=== PATIENT | male | born 1955 | race Two or more races ===

== ENCOUNTER 2025-01-07 13:45 | Emergency (ER) | payer MEDICARE ==
[~2025-01-07] VITALS: Ht 177.8 cm; Wt 102.0 kg
[~2025-01-07 13:45] MED LIST: CARV6.2553 PO; DIVA500T2 PO; DOXA8TAB90 PO; FURO20TA4 PO; LACO150T2 PO; LEVE750T6 PO; NOR5T PO
[2025-01-07 13:49] VITALS: TEMP 98.5
--- NOTE | 2025-01-07 14:05 | ELECTROCARDIOGRAPH REPORT ---
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 REGINALD Perez Measurements Intervals [place] Rate: 55 P: -66 MT: 201 QRS: -34 QRSD: 111 T: 47 QT: 449 QTc: 430 Interpretive Statements Sinus or ectopic atrial bradycardia Left axis deviation Probable right ventricular hypertrophy Electronically Signed On 01-07-2025 17:36:[address] REGINALD Perez Please click the below link to view image of tracing.
--- NOTE | 2025-01-07 14:08 | Physician Documentation ---
History of Present Illness General Chief Complaint: Seizure Stated Complaint: SEIZURE Time Seen by MD: 14:02 Mode of Arrival: EMS, Stretcher History of Present Illness Initial Comments The patient is a 69-year-old male with a history of encephalopathy transferred to our facility after he had two witnessed seizures. The patient he is on multiple seizure medications. The patient has a reported 10 minutes seizure followed by a 1 minute seizure. According to EMS he did not regain consciousnes s between the seizures. The patient was found by EMS to be verbally nonresponsive and minimally responsive the pain with a gag reflex with upper respiratory rhonchi. The patient was unable to provide additional history Medication Reconciliation Allergies: Coded Allergies: No Known Allergies (Unverified , 01/07/25) Scheduled Amlodipine Besylate (Amlodipine Besylate), 10 MG PO DAILY Carvedilol (Carvedilol), 1 TAB PO BID, (Reported) Divalproex Sodium (Depakote), 500 MG PO BID@0830,1730 Doxazosin Mesylate (Doxazosin Mesylate), 1 TAB PO DAILY, (Reported) Furosemide (Furosemide), 20 MG PO DAILY Lacosamide (Vimpat), 2 TAB PO Q12H Levetiracetam (Keppra), 2 TAB PO Q12H Discontinued Medications Bumetanide (Bumetanide), 1 TAB PO DAILY, (Reported) Past Medical History Past Medical History: Seizures Review of Systems Unable to obtain complete ROS: altered mental status Physical Exam Physical Exam Vital Signs: Temperature: 98.5, Source: Temporal, Heart Rate: 51, Respiratory Rate: 12, BP: 139/58, Pulse Oximetry: 87, Weight: 102.000 Oxygen Flow Rate: 4.0 Physical Exam VITALS: Reviewed and as above. GENERAL: Responsive to deep sternal rub eyes are closed HEENT: Normocephalic, atraumatic, PERRL, EOMI, dry mucosa, no erythema pupils are 2.5 mm reactive slight horizontal nystagmus RESPIRATORY: Bilateral rhonchi, no respiratory distress. CHEST: No accessory muscle use, no retractions CV: Bradycardic, rhythm, no edema, no murmur, No: JVD GI: Soft, bowels sounds present, no rebound, guarding, or rigidity BACK: No CVA tenderness, or swelling MUSCULOSKELETAL: No deformities, bilateral trace edema SKIN: Warm and dry, no rash NEURO: Responsive to sternal rub gag is intact Progress Results/Orders Results/Orders Orders - OHLSHERRY SHEFFIELD MD Electrocardiogram (01/07/25 14:02) Culture Blood (01/07/25 14:02) Chest,Single View (01/07/25 14:19) Straight Cath For Urine Sample (01/07/25 14:02) Completed Orders - SHERRY PETERSON MD Electrocardiogram (01/07/25 14:02) Cbc/Diff (01/07/25 14:02) MG (01/07/25 14:02) Chest,Single View (01/07/25 14:19) Procalcitonin (01/07/25 14:02) BMP (01/07/25 14:02) Hs Troponin I W Calculations (01/07/25 14:02) Lacticsepsis (01/07/25 14:02) Normal Saline 1000ml (0.9% Sodium Chlori (01/07/25 14:10) Levetiracetamnacl 1500mg/100ml (Levetira (01/07/25 14:10) Ua W/Microscopic, Cult If Ind (01/07/25 14:51) Vital Signs 01/07/25 01/07/25 01/07/25 01/07/25 13:49 13:53 14:01 15:30 Temp 98.5 Pulse 53 51 47 Resp 12 12 12 B/P (MAP) 138/75 139/58 (85) 110/58 (75) Pulse Ox 96 87 96 O2 Flow Rate 4.0 4.0 4.0 01/07/25 17:38 Pulse 49 Resp 14 B/P (MAP) 129/71 Pulse Ox 97 Laboratory Tests Test 01/07/25 14:02 01/07/25 14:51 01/07/25 18:25 White Blood Count 8.0 Red Blood Count 2.97 L Hemoglobin 9.3 L Hematocrit 26.3 L Mean Corpuscular Volume 88.8 Mean Corpuscular Hemoglobin 31.3 H Mean Corpuscular Hemoglobin Concent 35.3 Red Cell Distribution Width 15.3 H Platelet Count 188 Mean Platelet Volume 7.1 L Neutrophils (%) (Auto) 78.4 H Lymphocytes (%) (Auto) 13.1 L Monocytes (%) (Auto) 5.6 Eosinophils (%) (Auto) 1.9 Basophils (%) (Auto) 1.0 Neutrophils # (Auto) 6.3 Lymphocytes # (Auto) 1.0 L Monocytes # (Auto) 0.5 Eosinophils # (Auto) 0.1 Basophils # (Auto) 0.1 CBC Comment Sodium Level 145 Potassium Level 3.5 Chloride Level 108 H Carbon Dioxide Level 28.7 Anion Gap 8 Blood Urea Nitrogen 23 H Creatinine 1.43 H Estimated GFR/1.73 m2 49 BUN/Creatinine Ratio 16.1 Glucose Level 121 H Lactic Acid Level 1.0 Calcium Level 9.0 Magnesium Level 2.0 Troponin I High Sensitivity 15 Albumin 3.2 L Procalcitonin < 0.05 Chemistry Comments Urine Specimen Description Straight cath Urine Color Yellow Urine Clarity Clear Urine pH 6.0 Urine Specific [place] 1.015 Urine Protein Trace Urine Glucose (UA) Negative Urine Ketones Negative Urine Occult Blood Trace-intact Urine Nitrite Negative Urine Bilirubin Negative Urine Urobilinogen 0.2 Urine Leukocyte Esterase Negative Urine RBC 0-2 Urine WBC 0-4 Urine Squamous Epithelial Cells None seen Urine Bacteria Few Urine Mucus None seen Urine Culture Indicated Not ind Volume Urine Centrifuged 10 ml Urine Comment Glucometer 106 H Microbiology Date/Time Source Procedure Growth Status 01/07/25 14:02 Blood Arm Right Blood Culture - Preliminary NO GROWTH AFTER 1 DAY Resulted Medical Decision Making Additional information obtaine: old records Findings The patient is a 69-year-old male with a history of seizures who is on seizure medications and has a seizure it [facility] [facility], the patient was postictal on arrival in the emergency department the patient has been treated with Keppra he is on Keppra as well as two other antiepileptic meds he did regained consciousness he appears to be at his neurologic baseline his labs were unremarkable there was no evidence of an infectious nidus he is in no respiratory distress. His previous hospitalizations has been reviewed the patient's pulse oximetry was interpreted as normal and adequate, the patient's rn cardiac cath was interpreted as a sinus rhythm the patient will be discharged back to [place] [facility] Differential Diagnosis Seizure, infectious etiologies, encephalitis, Departure Disposition: 03 DETENTION FACILITY Impression: Primary Impression: Epilepsy Qualified Codes: G40.309 - Generalized idiopathic epilepsy and epileptic syndromes, not intractable, without status epilepticus Discharge Instructions: Seizure, Adult Referrals: NO PRIMARY CARE PROVIDER (PCP) Signature Scribe Signature: no scribe Attestation: The note accurately reflects work and decisions made by me.Sherry Peterson MD 01/08/25 16:11 SHERRY PETERSON MD Jan 07, 2025 14:08
[2025-01-07 14:13] LABS: MEAN PLATELET VOLUME 7.1 FL (7.4-10.4)
--- NOTE | 2025-01-07 14:29 | RADIOLOGY REPORT ---
CLINICAL HISTORY: SEPSIS TECHNIQUE: Single view of the chest was obtained. COMPARISON: None FINDINGS: The heart size is mildly enlarged. There are patchy bilateral lung opacities. IMPRESSION: Patchy bilateral lung opacities with differential including infection and/or pulmonary edema
[2025-01-07 14:34] LABS: CREATININE 1.43 MG/DL (0.60-1.10); TOTAL CARBON DIOXIDE 28.7 MMOL/L (24-32); eCRCL 49 ML/MIN; eGFR 49 ML/MIN
[2025-01-07] MEDS: levetiracetamNACL 1500mg/100mL 100 ML IV ONE (14:48)
[2025-01-07] MEDS: normal saline 1000ML IV soln IVB ONE (14:49)
[2025-01-07 15:07] LABS: RED CELL DISTRIBUTION WIDTH 15.3 % (11.5-14.5)
[2025-01-07 15:12] LABS: LEUKOCYTE ESTERASE ,URINE NEGATIVE (Neg); NITRITES, URINE NEGATIVE (Neg); OCCULT BLOOD,URINE TRACE-INTACT (Neg)
[2025-01-07 15:21] LABS: UA COLLECTION TYPE STRAIGHT CATH
[2025-01-07 15:23] LABS: MUCUS STRANDS NONE SEEN /LPF (Neg); SQUAMOUS EPITHELIAL CELL,UR NONE SEEN /LPF (FEW)
[2025-01-07 17:38] VITALS: BP 129/71; PULSE 49; RESP 14; O2SAT 97
== END 2025-01-07 18:45 ==
LOC: ER 13:46
DX: G40.909 Epilepsy, unspecified, not intractable, without status epilepticus (principal); R41.82 Altered mental status, unspecified; Z79.899 Other long term (current) drug therapy
CPT/HCPCS: 36415; 71045; 80048; 81001; 82948; 83605; 83735; 84145; 84484; 85025; 87040; 93005; 96365; 99285; C1758; J1953; J7030

== ENCOUNTER 2025-01-29 10:17 | Emergency (ER) | payer MEDICARE ==
[~2025-01-29] VITALS: Ht 177.8 cm; Wt 111.0 kg
--- NOTE | 2025-01-29 10:27 | Physician Documentation ---
History of Present Illness General Chief Complaint: Mental Health Eval Stated Complaint: SI Time Seen by MD: 10:25 History of Present Illness Initial Comments 70 year old male with history of diabetes and epilepsy presents to the emergency room via EMS from [facility] for complaints of a mental health evaluation. History was given by EMS who states patient was found at 0500 this morning with a cord around his neck. EMS states that patient was making threats of self harm last night. When talking to the patient he denies any depression or suicidal ideation. Patients accompanied the patient who stated that he has been depressed and confused due to seizures. Of note, patient presents with chronic wounds to his feet. Medication Reconciliation Allergies: Coded Allergies: No Known Allergies (Unverified , 01/29/25) Scheduled Amlodipine Besylate (Amlodipine Besylate), 10 MG PO DAILY Carvedilol (Carvedilol), 1 TAB PO BID, (Reported) Clonidine HCl (Clonidine HCl), 1 TAB PO HS, (Reported) Docusate Sodium (Docusate Sodium), 1 CAP PO Q12H, (Reported) Doxazosin Mesylate (Doxazosin Mesylate), 1 TAB PO DAILY, (Reported) Furosemide (Furosemide), 20 MG PO DAILY Insulin Glargine,Hum.rec.anlog* (Lantus*), 10 UNITS SUBCUT HS, (Reported) Lacosamide (Vimpat), 2 TAB PO Q12H, (Reported) Lactobacillus Acidophilus (Acidophilus), 1 TAB PO DAILY, (Reported) Pantoprazole Sodium (PROTONIX tablet), 40 MG PO DAILY, (Reported) Tuberculin,Purif.prot.deriv. (APLISOL - PPD inj.), 0.1 ML TD ONCE, (Reported) Valproic Acid (Valproic Acid), 2 CAP PO Q12H, (Reported) Miscellaneous Medications Insulin Lispro (Humalog Kwikpen), 100, (Reported) Discontinued Medications Divalproex Sodium (Depakote), 500 MG PO BID@0830,1730 Discontinued Reason: patient no longer taking Levetiracetam (Keppra), 2 TAB PO Q12H Discontinued Reason: wrong med Past Medical History Past Medical History: Seizures Review of Systems All Other Systems at this time: Reviewed and Negative ROS Patient was asked, but denied any other symptoms. All other systems are negative other than those mentioned above. Physical Exam Physical Exam Vital Signs: RN Vital Signs have been reviewed: Yes, Temperature: 98.8, Source: Temporal, Heart Rate: 79, Respiratory Rate: 16, BP: 158/80, Pulse Oximetry: 98, Weight: 111.000 Oxygen Flow Rate: 0 Pulse Oximetry Reflects: adequate oxygenation Physical Exam VITALS: Reviewed and as above. GENERAL: Alert, no apparent distress. HEENT: Normocephalic, atraumatic. PERRL, EOMI. Dry mucosa, no erythema. RESPIRATORY: Lungs clear, normal breath sounds, no respiratory distress. CHEST: No accessory muscle use, no retractions. CV: Regular rate and rhythm. No edema, no murmur, No: JVD GI: Soft, non-tender, bowel sounds present. No rebound, guarding, or rigidity. BACK: No CVA tenderness, no swelling. MUSCULOSKELETAL: No deformities, no edema SKIN: Warm and dry, no rash. NEURO: Oriented x2. No motor or sensory deficit. PSYCH: Normal mood and affect, no agitation Progress Progress Note 0600: Patient was signed out to me my night-shift EDMD, Dr. Matute. Patient pending evaluation from [facility]. 1044: The patient was evaluated by [facility] worker, Kortney, who states that the patient will not be on a 5150 hold. The patient wanted transportation to waiting post-acute. Information has been relayed to the unit technician, patient is stable and ready for discharge at this time. Results/Orders Results/Orders Medications Received in ER Medications (Trade) Dose Ordered Sig/Randy Route PRN Reason Start Time Stop Time Status Last Admin Dose Admin (Norvasc tablet) 10 mg DAILY PO 01/30/25 08:00 01/30/25 08:26 10 MG (Coreg tablet) 6.25 mg BID PO 01/30/25 08:00 01/30/25 08:24 6.25 MG (Colace capsule) 100 mg Q12H PO 01/30/25 08:00 01/30/25 08:24 100 MG (Lasix tablet) 20 mg DAILY PO 01/30/25 08:00 01/30/25 08:24 20 MG (Depakene capsule) 500 mg Q12H PO 01/30/25 08:00 01/30/25 08:24 500 MG (Cardura tablet) 8 mg DAILY PO 01/30/25 08:00 01/30/25 08:41 8 MG (VIMPAT 50mg tablet) 300 mg Q12H PO 01/30/25 08:00 01/30/25 08:25 300 MG (Protonix) 40 mg DAILY PO 01/30/25 08:00 01/30/25 08:24 40 MG Vital Signs 01/29/25 01/29/25 01/29/25 01/29/25 10:22 11:49 12:07 13:20 Temp 98.8 Pulse 79 74 74 75 Resp 16 24 25 20 B/P (MAP) 158/80 131/66 (87) 143/72 (95) 114/71 (85) Pulse Ox 98 97 95 96 O2 Flow Rate 0 0 0 0 01/29/25 01/29/25 01/29/25 01/29/25 14:57 16:09 17:03 18:45 Pulse 68 66 73 Resp 20 18 20 18 B/P (MAP) 120/62 (81) 112/59 (76) 129/67 (87) Pulse Ox 94 97 99 O2 Flow Rate 0 0 0 01/29/25 01/30/25 01/30/25 01/30/25 21:00 05:24 07:52 07:53 Temp 98.6 97.2 Pulse 70 77 Resp 16 18 20 B/P (MAP) 123/66 (85) 144/76 (98) Pulse Ox 99 99 O2 Flow Rate 0 0 01/30/25 01/30/25 08:26 10:50 Pulse 77 80 Resp 16 B/P (MAP) 142/71 (94) Pulse Ox 95 Laboratory Tests Test 01/29/25 10:41 01/29/25 11:47 01/29/25 12:00 01/29/25 22:24 White Blood Count 8.0 Red Blood Count 3.43 L Hemoglobin 10.5 L Hematocrit 30.6 L Mean Corpuscular Volume 89.2 Mean Corpuscular Hemoglobin 30.7 Mean Corpuscular Hemoglobin Concent 34.5 Red Cell Distribution Width 15.8 H Platelet Count 161 Mean Platelet Volume 7.3 L Neutrophils (%) (Auto) 76.2 H Lymphocytes (%) (Auto) 15.1 L Monocytes (%) (Auto) 7.3 Eosinophils (%) (Auto) 0.7 Basophils (%) (Auto) 0.7 Neutrophils # (Auto) 6.1 Lymphocytes # (Auto) 1.2 Monocytes # (Auto) 0.6 Eosinophils # (Auto) 0.1 Basophils # (Auto) 0.1 CBC Comment Sodium Level 141 Potassium Level 5.0 Chloride Level 104 Carbon Dioxide Level 32.3 H Anion Gap 5 L Blood Urea Nitrogen 25 H Creatinine 1.35 H Estimated GFR/1.73 m2 52 BUN/Creatinine Ratio 18.5 Glucose Level 250 H Calcium Level 9.1 Ammonia 20 Albumin 2.8 L Thyroid Stimulating Hormone (TSH) 1.50 Chemistry Comments Ethyl Alcohol Level < 10 Urine Specimen Description Ricks cath Urine Color Yellow Urine Clarity Clear Urine pH 6.5 Urine Specific [place] 1.010 Urine Protein Trace Urine Glucose (UA) 100 H Urine Ketones Negative Urine Occult Blood Trace-intact Urine Nitrite Negative Urine Bilirubin Negative Urine Urobilinogen 2.0 H Urine Leukocyte Esterase Negative Urine RBC 0-2 Urine WBC 5-10 H Urine Squamous Epithelial Cells Few Urine Transitional Epithelial Cells Few Urine Bacteria 1+ Urine Mucus None seen Volume Urine Centrifuged 10 ml Urine Comment Urine Opiates Screen Negative Urine Methadone Screen Negative Urine Fentanyl Screen Negative Urine Barbiturates Screen Negative Urine Phencyclidine Screen Negative Urine Amphetamines Screen Negative Urine Benzodiazepines Screen Negative Urine Cocaine Screen Negative Urine Cannabinoids Screen Negative Drug Screen Comment SARS-CoV-2 Antigen (Rapid) Negative Glucometer 196 H Medical Decision Making Additional information obtaine: N/A Findings See below Differential Diagnosis See Dr. Chaney since note Departure Time of Disposition: 10:46 Disposition: 02 SHORT TERM HOSPITAL Impression: Primary Impression: Suicidal ideations Additional Impression: Confusion Condition: Stable Discharge Instructions: Medical Screening Exam, Depression, Adult, Suicidal Feelings: How to Help Yourself Additional Instructions: You were evaluated today by [facility], and they have decided that you do not need to be placed on a hold at this time. Please follow up with your primary care provider regarding your visit. Return to ED for any new or worsening symptoms. Referrals: NO PRIMARY CARE PROVIDER (PCP) Education Educated: Patient, Family Educated regarding: diagnosis, treatment, need for follow up Signature Scribe Signature: Scribed for Ohlfs,Sherry Choudhury MD by Muriel Santos . 01/29/25 10:35 Attestation: Scribed for Ohlfs,Sherry Choudhury MD by Sonai Peterson . 01/30/25 12:32 OHLFS,SHERRY Choudhury MD Jan 29, 2025 10:27 MURIEL CARMICHAEL Jan 29, 2025 10:35 LUIS FLANNERY Jan 30, 2025 10:46 SONIA PETERSON MD Jan 30, 2025 12:33
[2025-01-29 10:50] LABS: MEAN PLATELET VOLUME 7.3 FL (7.4-10.4); RED CELL DISTRIBUTION WIDTH 15.8 % (11.5-14.5)
[2025-01-29 11:12] LABS: CREATININE 1.35 MG/DL (0.60-1.10); ETHANOL < 10 MG/DL (<10); TOTAL CARBON DIOXIDE 32.3 MMOL/L (24-32); eCRCL 51 ML/MIN; eGFR 52 ML/MIN
[2025-01-29] MEDS: insulin regular, human 10 units/0.1 ml syringe SQ ONE (11:47)
[2025-01-29 12:10] LABS: LEUKOCYTE ESTERASE ,URINE NEGATIVE (Neg); NITRITES, URINE NEGATIVE (Neg); OCCULT BLOOD,URINE TRACE-INTACT (Neg)
[2025-01-29 12:14] LABS: UA COLLECTION TYPE FOLEY CATH
[2025-01-29 12:16] LABS: MUCUS STRANDS NONE SEEN /LPF (Neg); SQUAMOUS EPITHELIAL CELL,UR FEW /LPF (FEW)
[2025-01-29 12:19] LABS: URINE AMPHETAMINE SCREEN NEGATIVE (Neg); URINE BARBITUATE SCREEN NEGATIVE (Neg); URINE BENZODIAZEPINES SCREEN NEGATIVE (Neg); URINE CANNABINOID SCREEN NEGATIVE (Neg); URINE COCAINE SCREEN NEGATIVE (Neg); URINE METHADONE SCREEN NEGATIVE (Neg); URINE OPIATE SCREEN NEGATIVE (Neg); URINE PHENCYCLIDINE SCREEN NEGATIVE (Neg)
--- NOTE | 2025-01-29 14:59 | RADIOLOGY REPORT ---
CLINICAL HISTORY: confusion TECHNIQUE: Helical scanning was performed of the head from the skull base to the vertex. Multiplanar reconstructions were performed. This exam was performed according to our departmental dose optimization program. Up-to-date CT equipment and radiation dose reduction techniques are utilized as appropriate. CTDI 64 DLP 1427 COMPARISON: MR MRI HEAD on DOS: 01/22/25, CT CT HEAD on DOS: 01/20/25 FINDINGS: There is no evidence for acute intracranial hemorrhage, acute ischemic changes, mass, mass effect, or extra-axial fluid collection. There is no hydrocephalus or midline shift. There is no effacement of the cerebral sulci and basal subarachnoid cisterns. The adam-white matter differentiation is well maintained. The imaged paranasal sinuses demonstrate minimal left maxillary sinus mucosal thickening IMPRESSION: NO ACUTE INTRACRANIAL ABNORMALITY SEEN.
[2025-01-29] MEDS ORDERED: LANTUS SUBCUT (22:57)
[2025-01-29] MEDS ORDERED: VALP250C44 PO (22:57)
[2025-01-29] MEDS ORDERED: PANT-47 PO (22:57)
[2025-01-29] MEDS ORDERED: INSU200I (22:57)
[2025-01-29] MEDS ORDERED: PPD TD (22:57)
[2025-01-29] MEDS ORDERED: LACT1TAB15 PO (22:57)
[2025-01-29] MEDS ORDERED: CLON0.1T2 PO (22:57)
[2025-01-29] MEDS ORDERED: DOCU100C40 PO (22:57)
[2025-01-29] MEDS ORDERED: LACO150T2 PO (22:57)
[2025-01-30 07:52] VITALS: TEMP 97.2
[2025-01-30] MEDS ORDERED: non-formulary drug (Levetiracetam (Keppra) 2 TAB) PO SCH (08:00)
[2025-01-30] MEDS: carvedilol 6.25mg tablet PO SCH (08:24)
[2025-01-30] MEDS: docusate sod 100mg capsule PO SCH (08:24)
[2025-01-30] MEDS: pantoprazole 40mg Tablet.DR PO SCH (08:24)
[2025-01-30] MEDS: LACOSAMIDE 50 MG TABLET PO SCH (08:25)
[2025-01-30 13:26] VITALS: BP 121/64; PULSE 84; RESP 19; O2SAT 95
== END 2025-01-30 13:25 | disposition short-term general hospital (02) ==
LOC: ER 10:17
DX: R45.851 Suicidal ideations (principal); R41.0 Disorientation, unspecified; F32.A Depression, unspecified; E11.9 Type 2 diabetes mellitus without complications; Z79.899 Other long term (current) drug therapy; Z20.822 Contact with and (suspected) exposure to COVID-19
CPT/HCPCS: 36415; 70450; 80048; 80305; 81001; 82140; 82948; 84443; 85025; 87811; 96372; 99285; A4615; G0480; J1815; 80320